=== PATIENT | female | born 1955 | race Caucasian/White ===

== ENCOUNTER 2017-04-24 22:45 | Emergency (ER) | payer SELFPAY, OTHER | END 2017-04-25 01:12 | disposition left against medical advice (07) | LOC: FTE 22:45 | DX: Z53.21 Procedure and treatment not carried out due to patient leaving prior to being seen by health care provider (principal) ==

== ENCOUNTER 2018-01-17 11:23 | Emergency (ER) | payer OTHER ==
[2018-01-17] MEDS ORDERED: morphine 4 MG/ML VIAL (11:44)
[2018-01-17] MEDS ORDERED: ONDANSETRON 4 MG INJ (11:44)
[2018-01-17 12:11] LABS: ADD MAN DIFF? NO
[2018-01-17 12:15] LABS: WHITE BLOOD COUNT 13.9 10^3/ul (4.8-10.8)
[2018-01-17 12:15] LABS: BASOPHILS % 0.1 % (0.0-2.0); EOSINOPHILS % 0.1 % (0.0-7.0); HEMATOCRIT 34.8 % (37.0-47.0); HEMOGLOBIN 12.6 g/dl (12.0-16.0); LYMPHOCYTES # 1.4 10^3/ul (0.8-2.9); MEAN CORPUSCULAR HEMOGLOBIN 30.6 pg (29.0-33.0); MEAN CORPUSCULAR HGB CONC 36.2 g/dl (32.0-37.0); MEAN CORPUSCULAR VOLUME 84.5 fl (82.0-101.0); MEAN PLATELET VOLUME 10.2 fl (7.4-10.4); MONOCYTE # 0.9 10^3/ul (0.3-0.9); MONOCYTES % 6.3 % (0.0-11.0); NEUTROPHIL # 11.5 10^3/ul (1.6-7.5); NEUTROPHILS % 82.9 % (39.0-77.0); PLATELET COUNT 198 10^3/UL (140-415); RED BLOOD COUNT 4.12 10^6/ul (4.20-5.40); RED CELL DISTRIBUTION WIDTH 15.5 % (11.5-14.5)
[2018-01-17] MEDS: morphine 4 MG/ML VIAL IV (12:22)
[2018-01-17] MEDS: ACETAMINOPHEN 325 MG TAB PO (12:22)
[2018-01-17] MEDS: PIPER-TAZO 3.375 GM IV (PMX) 100 ML IVPB (12:22)
[2018-01-17] MEDS: SODIUM CHLORIDE 0.9% 1L BAG IV* (12:22)
[2018-01-17] MEDS: ONDANSETRON 4 MG INJ IV (12:22)
[2018-01-17 12:34] LABS: INR 0.85; PROTIME 11.7 Sec (11.9-14.9); PT RATIO 0.9
[2018-01-17 12:35] LABS: PARTIAL THROMBOPLASTIN TIME 31.4 Sec (23.0-35.0)
[2018-01-17 12:49] LABS: ADD UMIC YES; UR ASCORBIC ACID NEGATIVE (NEGATIVE); UR BACTERIA FEW /HPF (NONE SEEN); UR BILIRUBIN (Dip) NEGATIVE (NEGATIVE); UR BLOOD (Dip) NEGATIVE (NEGATIVE); UR CLARITY SLIGHTLY CLOUDY (CLEAR); UR COLOR YELLOW (YELLOW); UR GLUCOSE (Dip) NEGATIVE (NEGATIVE); UR KETONES (Dip) 1+ mg/dL (NEGATIVE); UR LEUKOCYTE ESTERASE (Dip) NEGATIVE Leu/ul (NEGATIVE); UR MUCUS FEW /HPF (NONE SEEN); UR NITRITE (Dip) POSITIVE (NEGATIVE); UR RBC 0 /HPF (0-5); UR SPECIFIC GRAVITY (Dip) 1.009 (1.003-1.030); UR TOTAL PROTEIN (Dip) NEGATIVE (NEGATIVE); UR UROBILINOGEN (Dip) 2+ mg/dL (NEGATIVE); UR WBC 3 /HPF (0-5)
[2018-01-17 12:50] LABS: ANION GAP 17 (5-13); BLOOD UREA NITROGEN 10 mg/dl (7-20); CALCIUM 8.8 mg/dl (8.4-10.2); CARBON DIOXIDE 22 mmol/L (21-31); CHLORIDE 85 mmol/L (97-110); CREATININE 0.38 mg/dl (0.44-1.00); Estimated GFR > 60 mL/min (>60); GLUCOSE 76 mg/dl (70-220); POTASSIUM 3.8 mmol/L (3.5-5.1); SODIUM 124 mmol/L (135-144); TROPONIN-I < 0.012 ng/ml (0.000-0.120)
[2018-01-17] MEDS: VANCOMYCIN 1 GM (PMX) 250 ML IVPB (13:06)
[2018-01-17] MEDS: HYDROmorphONE 2 MG/ML SYG IV (14:51)
== END 2018-01-17 15:27 | disposition short-term general hospital (02) ==
LOC: E/R 11:23
DX: A41.9 Sepsis, unspecified organism (principal); I10 Essential (primary) hypertension; L03.116 Cellulitis of left lower limb; L03.115 Cellulitis of right lower limb; I25.2 Old myocardial infarction; F17.210 Nicotine dependence, cigarettes, uncomplicated; Z85.43 Personal history of malignant neoplasm of ovary
CPT/HCPCS: 36415; 71045; 80048; 81001; 83605; 84484; 85025; 85610; 85730; 87040; 87086; 93005; 96374; 96375; 99291-25

== ENCOUNTER 2018-05-23 17:15 | Emergency (ER) | payer OTHER | END 2018-05-23 23:13 | disposition home or self-care (01) | LOC: E/R 17:15 | DX: F10.921 Alcohol use, unspecified with intoxication delirium (principal); I25.2 Old myocardial infarction; R40.2142 Coma scale, eyes open, spontaneous, at arrival to emergency department; R40.2362 Coma scale, best motor response, obeys commands, at arrival to emergency department; R40.2242 Coma scale, best verbal response, confused conversation, at arrival to emergency department; R94.02 Abnormal brain scan | CPT/HCPCS: 70450; 82962; 99284-25 ==

== ENCOUNTER 2018-07-25 20:46 | Emergency (ER) | payer OTHER ==
[2018-07-25] MEDS: morphine 4 MG/ML VIAL IM (21:44)
== END 2018-07-26 00:20 | disposition home or self-care (01) ==
LOC: FTE 07-26 00:20
DX: M25.512 Pain in left shoulder (principal); I25.2 Old myocardial infarction; F17.210 Nicotine dependence, cigarettes, uncomplicated; Z85.43 Personal history of malignant neoplasm of ovary
CPT/HCPCS: 73030; 96372; 99284-25

== ENCOUNTER 2018-07-28 13:52 | Emergency (ER) | payer OTHER | END 2018-07-28 15:14 | disposition home or self-care (01) | LOC: FTE 13:52 | DX: M25.519 Pain in unspecified shoulder (principal); I25.2 Old myocardial infarction; Z87.891 Personal history of nicotine dependence | CPT/HCPCS: 99281; Z7502 ==

== ENCOUNTER 2018-07-28 21:50 | Emergency (ER) | payer SELFPAY, OTHER | END 2018-07-29 04:14 | disposition home or self-care (01) | LOC: FTE 21:50 | DX: M25.512 Pain in left shoulder (principal); F17.210 Nicotine dependence, cigarettes, uncomplicated; I25.2 Old myocardial infarction | CPT/HCPCS: 99283 ==